=== PATIENT | female | born 1995 | race Caucasian/White ===

== ENCOUNTER 2018-07-05 23:10 | Emergency (ER) | payer BC, OTHER ==
[~2018-07-05] VITALS: Ht 152.4 cm; Wt 79.7 kg
[2018-07-05 23:12] VITALS: Ht 152.4 cm; Wt 79.7 kg
[2018-07-06] MEDS ORDERED: IBUPROFEN 800 MG TAB PO ONE (03:00)
[2018-07-06] MEDS ORDERED: SULF1TAB31 PO (03:46)
[2018-07-06] MEDS ORDERED: ACET500T98 PO (03:47)
[2018-07-06] MEDS ORDERED: IBUP-1542 PO (03:47)
[2018-07-06 03:58] VITALS: BP 129/75; PULSE 88; RESP 18
--- NOTE | 2018-07-06 07:07 | ERD ---
ER Documentation Chief Complaint Chief Complaint PELVIC PAIN WITH POSS VAG ABSCESS X4DAYS HPI 23-year-old female presents for pelvic pain possible abscess times 4 days. She denies any fevers or chills. She states that she has vaginal discharge. To that the mass has been increasing in size. She has not taken any medication for pain. She denies any dysuria. She denies any chest pain or shortness of breath. Denies pain nausea or vomiting. No other complaints. ROS All systems reviewed and are negative except as per history of present illness. Medications Home Meds Active Scripts Acetaminophen (Tylenol) 500 Mg Tab, 500 MG PO Q4H PRN for PAIN, #30 TAB Prov:VILMA ENCARNACION 07/06/18 Ibuprofen* (Motrin*) 600 Mg Tab, 600 MG PO Q6H PRN for PAIN AND OR ELEVATED TEMP, #30 TAB Prov:VILMA ENCARNACION 07/06/18 Sulfamethoxazole/Trimethoprim* (Bactrim Ds* Tablet) 1 Each Tablet, 1 TAB PO BID for abscess for 7 Days, #14 TAB Prov:VILMA ENCARNACION 07/06/18 Allergies Allergies: Coded Allergies: No Known Allergy (Unverified , 07/06/18) PMhx/Soc Medical and Surgical Hx: pt denies Medical Hx, pt denies Surgical Hx Hx Alcohol Use: Yes (SOMETIMES) Hx Substance Use: No Hx Tobacco Use: Yes Smoking Status: Current every day smoker Physical Exam Vitals Vital Signs Date Temp Pulse Resp B/P (MAP) Pulse Ox O2 O2 Flow FiO2 Time Delivery Rate 07/06/18 98.4 88 18 129/75 98 Room Air 03:58 (93) 07/05/18 98.9 103 19 139/77 97 23:12 (97) Physical Exam Const: No acute distress Resp: Clear to auscultation bilaterally Cardio: Regular rate and rhythm, no murmurs Skin: No petechiae or rashes Back: No midline or flank tenderness Ext: No cyanosis, or edema Neur: Awake and alert Psych: Normal Mood and Affect Vaginal exam: And with nursing staff at bedside, right labial mass noted with mild underlying fluctuance Results 24 hrs Current Medications Medications Dose Sig/Marah Start Time Status Last (Trade) Ordered Route PRN Stop Time Admin Dose Reason Admin Ibuprofen 800 mg ONCE ONCE 07/06/18 DC 07/06/18 (Motrin) PO 03:00 03:07 07/06/18 03:01 Procedures/MDM Medical Decision Making: Differential diagnosis includes but not limited to Bartholin's gland abscess, Bartholin's gland cyst Patient appeared well on physical exam. Physical examination consistent with a small Bartholin's glands abscess The abscess appears to be too small for incision and drainage. Discussed with patient trial of antibiotics. Patient agrees with plan. Patient given prescription for antibiotic. Advised to return to the ER in 48 hours for a recheck. Patient advised to follow up with PCP in 1-2 days. Patient advised to return to ED for new or worsening symptoms. Patient stable on discharge from the ED. Disclaimer: Inadvertent spelling and grammatical errors are likely due to EHR/dictation software use and do not reflect on the overall quality of patient care. Also, please note that the electronic time recorded on this note does not necessarily reflect the actual time of the patient encounter. Departure Diagnosis: Primary Impression: Abscess of Bartholin's gland Condition: Fair Patient Instructions: Bartholin's Cyst (No Infection) Referrals: [employer] [place] [id number] [facility] [address] [place] [address]LEME [facility] [address] [place] [place] [id number] [facility] [facility] [address] [place] [address] [address] [facility] [address] [facility] [address] [address] [address] [place] [phone] [facility] [address] [place], [place] [id number] [facility] [id number] - [address]HA [address] [facility] [address] [address] BURDICK, AGUILAR [address] [facility]. [address], [facility] [address] [address] [address] [place] [address] Additional Instructions: Call your primary care doctor TOMORROW for an appointment during the next 1-2 days.See the doctor sooner or return here if your condition worsens before your appointment time. Sitz bath twice daily for 7 days. Pain medication as needed and as instructed. Antiobiotics for 7 days. VILMA ENCARNACION DO Jul 06, 2018 07:07
== END 2018-07-06 03:59 | disposition home or self-care (01) ==
LOC: FTE 23:10
DX: N75.1 Abscess of Bartholin's gland (principal); F17.210 Nicotine dependence, cigarettes, uncomplicated
CPT/HCPCS: 99283